=== PATIENT | male | born 1980 | race Caucasian/White ===

== ENCOUNTER 2016-09-23 08:41 | Outpatient (CLI) | payer MEDICAID ==
[2016-09-23] MEDS ORDERED: GADOBUTROL 7.5 MMOL/7.5 ML VIAL IVP ONE (10:37)
== END 2016-09-23 08:42 | disposition home or self-care (01) ==
DX: D17.4 Benign lipomatous neoplasm of intrathoracic organs (principal); R22.2 Localized swelling, mass and lump, trunk
CPT/HCPCS: 71552; A9585

== ENCOUNTER 2023-04-19 21:37 | Emergency (ER) | payer MEDICAID ==
[2023-04-19] MEDS ORDERED: KETOROLAC 30 MG/ML VIAL IM STA (21:45)
[2023-04-19 21:46] VITALS: BP 184/108
[2023-04-19] MEDS ORDERED: methocarbamoL 500 MG TABLET PO STA (21:46)
[2023-04-19] MEDS ORDERED: ACETAMINOPHEN 325 MG TABLET PO STA (21:46)
[2023-04-19] MEDS ORDERED: DEXAMETHASONE 10 MG/ML VIAL IM STA (21:46)
[2023-04-19] MEDS ORDERED: LIDOCAINE PATCH 5% TOP STA (21:46)
[2023-04-19] MEDS ORDERED: oxyCODONE 5 MG TABLET PO STA (22:57)
--- NOTE | 2023-04-19 23:06 | ED Physician Documentation ---
PD HPI BACK PAIN - Stated complaint Stated Complaint: BACK PX - Chief complaint Chief Complaint: Back Pain - History obtained from History obtained from: Patient - Additional information Additional information: 42-year-old male presents by private vehicle for lumbar back pain. Patient was in the grocery store bending over to get a lasagna when he felt something pop in his back. Took 800 mg ibuprofen prior to arrival. Reporting pain all across his lumbar back. Denies bowel or bladder incontinence, denies saddle anesthesia. Reports pain with ambulation, however is ambulatory of his own power. Review of Systems GI: denies: Nausea, Vomiting : denies: Dysuria, Unable to Void Musculoskeletal: reports: Back pain. denies: Neck pain, Extremity pain PD PAST MEDICAL HISTORY - Present Medications Home Medications: Ambulatory Orders Medication Instructions Recorded Confirmed Lidocaine Patch 5% [Lidoderm Patch] 1 patch TOP DAILY #10 patch 04/19/23 methocarbamoL [Robaxin] 500 mg PO Q6H #30 tablet 04/19/23 methylPREDNISolone [Medrol Dose 1 each PO .PACKAGEINSTRUCTIONS 6 04/19/23 Pack] Days #1 each - Allergies Allergies/Adverse Reactions: Allergies Allergy/AdvReac Type Severity Reaction Status Date / Time COLD MEDICINES AdvReac Unknown Uncoded 04/19/23 21:43 PD ED PE NORMAL - Vitals Vital signs reviewed: Yes - General General: Alert and oriented X 3, No acute distress, Well developed/nourished - HEENT HEENT: Atraumatic - Neck Neck: Supple, no meningeal sign - Cardiac Cardiac: RRR - Abdomen Abdomen: Soft, Non distended - Back Back: No CVA TTP, No spinal TTP, Other (generalized tenderness over lumbar back. 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 No signs or symptoms of cauda equina, no midline vertebral tenderness, no indication for imaging at this time. Patient was given numerous medications for pain. I emphasized that there is no quick fix for back pain and patient would likely take several days to several weeks before he fully improved. Discharged with nonnarcotic analgesia including steroids, muscle relaxers, lidocaine patches. Counseled to take medications with Tylenol and Motrin. PCP follow-up advised. Departure - Departure Disposition: 01 Home, Self Care Clinical Impression: Back pain Condition: Stable Instructions: ED Neck Back Pain General Prescriptions: Lidocaine Patch 5% [Lidoderm Patch] 1 patch TOP DAILY #10 patch methylPREDNISolone [Medrol Dose Pack] 1 each PO .PACKAGEINSTRUCTIONS 6 Days #1 each methocarbamoL [Robaxin] 500 mg PO Q6H #30 tablet Comments: Take all medications with Tylenol and Motrin. Gentle stretching exercises are helpful and low back pain. You may also apply heating packs. Discharge Date/Time: 04/19/23 23:31
== END 2023-04-19 23:31 | disposition home or self-care (01) ==
LOC: ED 21:37
DX: M54.50 Low back pain, unspecified (principal)
CPT/HCPCS: 96372; 99283; A9270

== ENCOUNTER 2023-11-07 10:49 | Outpatient (CLI) | payer MEDICAID ==
--- NOTE | 2023-11-07 10:45 | CARDIAC PROCEDURE NOTE ---
Stress Test Report Service Date: 11/07/23 Service Time: 11:00 Ordering Provider: Berkley Beck ARNP Indication for Test: Assess non-exertional chest pain. Significant Medical History: Duran is referred for a treadmill stress echocardiogram today to assess a 2-year history of upper chest discomfort "over the pectoral muscles" that occurs almost entirely when he lies down in bed to go to sleep. The discomfort requires him to be very attentive to his body position and it seems that raising his arms over his head makes the discomfort worse, while sleeping on his stomach seems to decrease it. There is no associated radiation of the discomfort, nausea/vomiting or associated diaphoresis. He has not experienced the chest discomfort with exertion, nor a reduction in his stamina, though he does not exercise regularly. This chest discomfort is nested within a larger complex of thoracic symptoms that include dysphagia (partial to complete) and water brash at times. The latter symptoms date back almost 30 years, at which time a test t hat sounds like a barium swallow was reportedly negative and he obtained benefit from an unknown medication that made it possible to eat his meals. In recent months these symptoms have again worsened, with some response to [id number] omeprazole. He feels that these latter symptoms are separable from the upper chest discomfort that is the focus of today's study. He is scheduled for a formal evaluation by a market research senior project manager in the next few weeks. When seen in early September for a full evaluation by his primary provider his blood pressure was markedly elevated and he was started on lisinoprilHCTZ 10/12.5 mg daily. He has been monitoring blood pressures and says the systolic pressures continue to run in the 150-160 range. He last took his BP medication approximately 20 hours ago. He also reports feeling throat fullness and cough that per his internet reading suggests bradykinin-related MADISON-inhibitor side effects. Cardiac Risk Factors: Positive for hyperension (recently diagnosed and patient started on anti- hypertensive therapy) and family history of likely CAD in a maternal uncle and paternal grandfather; negative for tobacco smoking history, diabetes and hyperlipidemia. Type of Stress Test: ETT with Echocardiography Procedure: -Exercise Treadmill Test- After signing informed consent, the patient underwent echo imaging at rest and then performed treadmill exercise using a Duarte protocol. The patient exercised for 8 minutes 14 seconds and achieved a peak heart rate of 158 (89 percent pred icted maximum heart rate for age), and an estimated workload of 10.2 METS. The test was terminated due to limiting pain in his ankle, that he reports "twisting" last evening. Resting heart rate: 68 Peak heart rate: 158 Normal response to exercise. Resting BP: 162/103 Peak BP: 225/102 Hypertensive at rest with physiologic BP response to exercise. Room air oxygen saturation remained in the range of 94-96% throughout. Rhythm during exercise: Sinus rhythm with very rare isolated PVCs. Symptoms: Although he reported mild dyspnea and fatigue and reported that he could have worked further from these standpoints, he had to stop due to progressive ankle pain. EKG at rest showed normal sinus rhythm, notable for non-significant q waves in leads III and aVF, with normal/interpretable ST/T pattern throughout. EKG at peak stress showed J-point depression with upsloping ST segments, NOT meeting EKG diagnostic criteria for ischemia. In Recovery HR and BP normally decreased to near resting levels (HR 93, BP 161/90 at 7:00). Echo imaging, performed at rest and with stress, will be reported separately. IGuillaume MD, was present throughout this treadmill stress study and s upervised it in its entirety. Summary: 1) Exercise tolerance could not be determined, given exercise discontinuation for the non-cardiovascular symptom of ankle pain; achieved JERONIMO of 26% at exercise termination was significantly reduced for age and sex. 2) Normal resting EKG. 3) Adequate level of exercise was achieved on this treadmill stress test. 4) Hypertensive at rest with physiologic BP response to exercise. 5) No ischemic changes by EKG criteria were seen at peak stress. 6) Echo image interpretation reveals normal left ventricular size and systolic function, with borderline-mild concentric left ventricular hypertrophy, with appropriate hyperdynamic augmentation of all segments with exercise, indicating no evidence of prior infarct or inducible ischemia. No significant valvular abnormality or elevation of estimated pulmonary artery systolic pressure seen on screening study. See separate report for more details. Conclusions and Recommendations: 1) Overall this is a reassuring treadmill stress echocardiogram, with no symptom, EKG or echocardiographic evidence of inducible ischemia. Unfortunately due to an acute ankle injury we could not accurately assess his exertional tolerance, and the stress echo images were mostly obtained at a sub-diagnostic heart rate, reducing their sensitivity to reveal ischemic change(s). 2) Given patient's report of continuing elevated blood pressures after initiating the starting dose of lisinopril/HCTZ, I recommended that he double up on this medication for today and tomorrow. Since he is experiencing throat symptoms and cough suggestive of MADISON inhibitor side effects he will call the clinic on when this final report should be available and his provider can review the results and change him to an alternative BP medication. An angiotensin receptor rich may be appropriate, in which case I would recommend irbesartan as the most potent starting at a dose of 150 mg daily with reassessment and possible dose escalation after a couple of weeks of treatment. A dihydropyridine channel rich or chlorthalidone (with supplemental KCl) would be other reasonable first-line options.
== END 2023-11-07 10:50 | disposition home or self-care (01) ==
LOC: DI 10:49
PROVIDERS: ATTEND Nurse Practitioner
DX: R07.89 Other chest pain (principal); I49.3 Ventricular premature depolarization; I10 Essential (primary) hypertension
CPT/HCPCS: 93350